=== PATIENT | male | born 1950 | race Caucasian/White ===

== ENCOUNTER 2020-01-23 16:57 | Inpatient (IN) | payer MEDICARE, OTHER ==
[~2020-01-23] VITALS: Ht 182.9 cm; Wt 117.8 kg
[2020-01-23 18:04] LABS: BASOPHILS % (AUTO) 0.4 % (0.0-5.0); EOSINOPHILS % (AUTO) 0.1 % (0.0-8.0); HEMATOCRIT 46.7 % (42-54); LYMPHOCYTES % (AUTO) 7.5 % (21.0-51.0); MEAN CORPUSCULAR HEMOGLOBIN 30.5 pg (27.0-33.0); MEAN CORPUSCULAR HGB CONC 33.4 g/dL (32.0-36.0); MEAN CORPUSCULAR VOLUME 91.2 fL (79-99); MONOCYTES % (AUTO) 5.2 % (3.0-13.0); NEUTROPHILS % (AUTO) 86.3 % (40.0-77.0); PLATELET COUNT (AUTO) 231 K/uL (130-400); RED BLOOD CELL COUNT(AUTO) 5.12 MIL/uL (4.50-6.20); RED CELL DISTRIBUTION WIDTH 12.6 % (11.0-15.5); WHITE BLOOD COUNT (AUTO) 15.1 K/uL (4.8-10.8)
[2020-01-23 18:07] LABS: APPEARANCE,URINE Cloudy (CLEAR); BILIRUBIN,URINE Small (NEGATIVE); COLOR,URINE Dark Yellow (YELLOW); GLUCOSE, URINE (UA) Negative (NEGATIVE); KETONES,URINE 40 mg/dL (NEGATIVE); LEUKOCYTE ESTERASE ,URINE Negative (NEGATIVE); NITRATE,URINE Negative (NEGATIVE); OCCULT BLOOD,URINE Large (NEGATIVE); PROTEIN,URINE POS 2+ mg/dL (NEGATIVE)
[2020-01-23 18:38] LABS: CREATININE 1.3 mg/dL (0.5-1.5); POTASSIUM 3.6 mmol/L (3.5-5.1)
[2020-01-23 18:44] LABS: ALBUMIN 4.3 g/dL (3.5-5.0); BILIRUBIN,TOTAL 0.9 mg/dL (0.2-1.0)
[2020-01-23] MEDS ORDERED: TAMSULOSIN HCL 0.4 MG CAP.ER.24H ONE (19:52)
[2020-01-23] MEDS ORDERED: CEFTRIAXONE SODIUM 1 GM ONE (19:52)
[2020-01-23] MEDS ORDERED: ONDANSETRON HCL 4 MG/2 ML VIAL IV PRN (20:15)
[2020-01-23] MEDS ORDERED: KETOROLAC TROMETHAMINE 15MG/ML IV PRN (20:15)
[2020-01-23] MEDS: SODIUM CHLORIDE 0.9% 1000ML 1,000 ML IV SCH (20:15)
[2020-01-23 20:39] LABS: RBC,URINE 26-50 /HPF (0-1)
[2020-01-23 20:40] LABS: BACTERIA,URINE Few /HPF (None Seen); MUCUS,URINE Moderate LPF (None Seen); SQUAMOUS EPITHELIAL CELL,UR Rare /HPF (0-2)
[2020-01-23] MEDS: FAMOTIDINE/PF 20 MG/2 ML VIAL IV SCH (21:00)
[2020-01-23] MEDS ORDERED: FAMOTIDINE/PF 20 MG/2 ML VIAL IV ONE (21:05)
[2020-01-23 22:10] VITALS: BP 161/99
[2020-01-24] VITALS (28 sets, daily range): BP systolic 116–167; BP diastolic 61–109
[2020-01-24 05:23] LABS: BASOPHILS % (AUTO) 0.7 % (0.0-5.0); EOSINOPHILS % (AUTO) 1.3 % (0.0-8.0); HEMATOCRIT 40.6 % (42-54); LYMPHOCYTES % (AUTO) 25.4 % (21.0-51.0); MEAN CORPUSCULAR HEMOGLOBIN 29.7 pg (27.0-33.0); MEAN CORPUSCULAR HGB CONC 32.8 g/dL (32.0-36.0); MEAN CORPUSCULAR VOLUME 90.6 fL (79-99); MONOCYTES % (AUTO) 9.4 % (3.0-13.0); NEUTROPHILS % (AUTO) 62.9 % (40.0-77.0); PLATELET COUNT (AUTO) 192 K/uL (130-400); RED BLOOD CELL COUNT(AUTO) 4.48 MIL/uL (4.50-6.20); RED CELL DISTRIBUTION WIDTH 12.7 % (11.0-15.5)
[2020-01-24 05:37] LABS: INR 0.99 (0.85-1.15); PARTIAL THROMBOPLASTIN TIME 26.1 SEC (26.3-35.5); PROTHROMBIN TIME 10.7 SEC (9.6-11.6)
[2020-01-24 05:43] LABS: ALANINE AMINOTRANSFERASE 16 U/L (12-78); ALBUMIN 3.4 g/dL (3.5-5.0); ASPARTATE AMINOTRANSFERASE 19 U/L (10-37); BILIRUBIN,TOTAL 0.8 mg/dL (0.2-1.0); CARBON DIOXIDE 25 mmol/L (21-32); CHLORIDE 105 mmol/L (101-111); GLOMERULAR FILTR. RATE CALC 78 mL/min (>60); GLUCOSE,RANDOM 102 mg/dL (70-105); POTASSIUM 3.5 mmol/L (3.5-5.1); SODIUM SERUM 140 mmol/L (136-145); TOTAL PROTEIN, SERUM 6.7 g/dL (6.0-8.3); UREA NITROGEN, BLOOD 16 mg/dL (7-18)
[2020-01-24] MEDS: CEFTRIAXONE SODIUM 1 GM IVP SCH ×2 (06:00→18:15)
--- NOTE | 2020-01-24 08:00 | NUR ---
PATIENT UPDATE Admitted a 69 yr old male for acute urethral lithiasis, seen by Dr. De La Paz in ER. Started on ivf of NS at 75 cc's per hour. Instructed on npo post mn, going for lt ureteroscopy with basketting this am, consent secured, patient showered. Urine strained overnight by pt himself, no stones drained. Went down for CT of the pelvis without contrast as per Dr. De La Paz's order at 0700. No complaints of pain overnight, no nausea and vomiting, slept well overnight.
[2020-01-24] MEDS ORDERED: LIDOCAINE PF 2% 5ML ABBOJECT ONE (08:32)
[2020-01-24] MEDS ORDERED: MIDAZOLAM HCL 1 MG/ML 2ML VIAL ONE (08:32)
[2020-01-24] MEDS ORDERED: ONDANSETRON HCL 4 MG/2 ML VIAL ONE (08:32)
[2020-01-24] MEDS ORDERED: SUCCINYLCHOLINE 200MG/10ML SYR ONE (08:32)
[2020-01-24] MEDS ORDERED: GLYCOPYRROLATE 1 MG/5 ML SYRINGE ONE (08:32)
[2020-01-24] MEDS ORDERED: NEOSTIGMINE 5MG/5ML SYR IV ONE (08:32)
[2020-01-24] MEDS ORDERED: DEXAMETHASONE SOD PHOSPHATE 10MG/ML 1ML VIAL ONE (08:32)
[2020-01-24] MEDS ORDERED: FENTANYL CITRATE PF 50 MCG/1 ML 2ML VIAL ONE ×2 (08:33→09:26)
[2020-01-24] MEDS ORDERED: ROCURONIUM 10MG/1ML SYR 10 MG/ML ML ONE (08:33)
[2020-01-24] MEDS ORDERED: PROPOFOL 10 MG/ML 20ML VIAL IV ONE (08:33)
[2020-01-24] MEDS ORDERED: IOHEXOL-350 50ML VIAL IV ONE (08:56)
[2020-01-24] MEDS ORDERED: TAMSULOSIN HCL 0.4 MG CAP.ER.24H PO SCH (09:00)
[2020-01-24] MEDS: SODIUM CHLORIDE 0.9% 1000ML 1,000 ML IV SCH (10:35)
[2020-01-24 12:01] LABS: HEMOGLOBIN A1C 5.8 % (4.0-6.0)
[2020-01-24 12:16] LABS: CHOLESTEROL 150 mg/dL (<200); HDL CHOLESTEROL 101 mg/dL (29-71); LDL DIRECT 78 mg/dL (0-99); TRIGLYCERIDES 112 mg/dL (30-200)
[2020-01-24] MEDS ORDERED: LACTATED RINGERS 1000ML 1,000 ML IV SCH (12:30)
[2020-01-24] MEDS ORDERED: ACETAMINOPHEN 325 MG TAB PO PRN (12:30)
[2020-01-24] MEDS ORDERED: ACETAMINOPHEN-CODEINE 300/30MG TAB PO PRN (12:30)
[2020-01-24] MEDS ORDERED: MEPERIDINE-PF 75 MG/ML SYG IM PRN (12:30)
[2020-01-24] MEDS ORDERED: OXYBUTYNIN CHLORIDE 5 MG TABLET PO PRN (12:30)
[2020-01-24] MEDS: FAMOTIDINE/PF 20 MG/2 ML VIAL IV SCH (13:33)
--- NOTE | 2020-01-24 15:29 | NUR ---
INITIAL SW met with patient and spouse, Mariama Acosta, [phone]. Patient has no home services or DME. He is able to complete ADL's independently and drives. 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 No PCP at this time. Pharmacy is [facility] located on [address] [place] [address] in [place]. DCP is home. Addendum: 01/24/20 at 1531 by MIRIAN LOCKWOOD SS Amended: Links added.
--- NOTE | 2020-01-24 18:12 | NUR ---
USING CLEAN TECHNIQUE, REMOVED STEIN CATHETER ORDERED BY DR SANCHEZ. NOTED 600MLS OF PINK TINGED URINE IN STEIN. DEFLATED 10CC OF NS FROM BULB. CATHETER TIP INTACT. PT DENIES DISCOMFORT. PENDING TO VOID. WILL CONTINUE TO MONITOR.
--- NOTE | 2020-01-24 18:56 | NUR ---
PT VOIDED. DR SANCHEZ AWARE, ROUNDED WITH PT AT THIS TIME. ORDERS GIVEN TO DISCHARGE PT HOME BY DR GALINDO AND DR SANCHEZ.
--- NOTE | 2020-01-24 19:50 | NUR ---
PER MD ORDERS DISCHARGE INSTRUCTIONS GIVEN TO PT. IV REMOVED, TIP INTACT. PT DENIES ANY PAIN. EDUCATE PT ON NEW MEDICATION KEFLEX AND TO FOLLOW UP WITH DR SANCHEZ IN 1 WEEK. VERBALIZES UNDERSTANDING.
== END 2020-01-24 19:55 | disposition home or self-care (01) | DRG 661 ==
LOC: EDH 16:57 → EDHIP 20:02 → 3DH 21:42
PROVIDERS: ADMIT Hospitalist; ATTEND Hospitalist
PROC: 0TC78ZZ Extirpation of Matter from Left Ureter, Via Natural or Artificial Opening Endoscopic (ICD-10-PCS; principal; 2020-01-24 09:10)
PROC: 0T748DZ Dilation of Left Kidney Pelvis with Intraluminal Device, Via Natural or Artificial Opening Endoscopic (ICD-10-PCS; 2020-01-24 09:10)
PROC: BT1F1ZZ Fluoroscopy of Left Kidney, Ureter and Bladder using Low Osmolar Contrast (ICD-10-PCS; 2020-01-24 09:10)
DX: N13.2 Hydronephrosis with renal and ureteral calculous obstruction (principal); K57.90 Diverticulosis of intestine, part unspecified, without perforation or abscess without bleeding; K76.89 Other specified diseases of liver; N28.89 Other specified disorders of kidney and ureter; Z87.891 Personal history of nicotine dependence; Z85.828 Personal history of other malignant neoplasm of skin; Z72.89 Other problems related to lifestyle
CPT/HCPCS: 36415; 71045; 72192; 74176; 74420; 80053; 80061; 81001; 82360; 83036; 84145; 84153; 85025; 85610; 85730; 87088; 93005; A4344; C1758; C1769; C2617; G0378; J0330; J0696; J1100; J2001; J2250; J2405; J2704; J2710; J3010; J3490; J7120; Q9967

== ENCOUNTER → 2021-03-16 | Outpatient (CLI) | payer OTHER, MEDICARE ==
[~2021-03-16] MED LIST: IOHEXOL 350 MG/ML 100ML INFUS..BTL IV ONE
[2021-03-16 11:50] LABS: INR 1.05 (0.85-1.15); PROTHROMBIN TIME 11.4 SEC (9.6-11.6)
[2021-03-16 11:52] LABS: PARTIAL THROMBOPLASTIN TIME 24.9 SEC (26.3-35.5)
== END | disposition home or self-care (01) ==
LOC: RAH 09:09 → EEVIPCON 10:10
PROVIDERS: ATTEND Otolaryngology Plastic Surgery within the Head & Neck
DX: R22.1 Localized swelling, mass and lump, neck (principal); K11.8 Other diseases of salivary glands; Z79.01 Long term (current) use of anticoagulants; Z90.89 Acquired absence of other organs
CPT/HCPCS: 36415; 42400; 70491; 71260; 76942; 85610; 85730; 87070; 87076; 87101; 87206; Q9967; 10005; 38505

== ENCOUNTER 2021-04-11 06:30 | Day surgery (SDC) | payer OTHER, MEDICARE ==
[2021-04-06 12:19] LABS: BASOPHILS % (AUTO) 0.2 % (0.0-5.0); EOSINOPHILS % (AUTO) 0.3 % (0.0-8.0); HEMATOCRIT 41.1 % (42-54); LYMPHOCYTES % (AUTO) 18.2 % (21.0-51.0); MEAN CORPUSCULAR HEMOGLOBIN 29.8 pg (27.0-33.0); MEAN CORPUSCULAR HGB CONC 32.6 g/dL (32.0-36.0); MEAN CORPUSCULAR VOLUME 91.3 fL (79-99); MONOCYTES % (AUTO) 8.7 % (3.0-13.0); NEUTROPHILS % (AUTO) 72.3 % (40.0-77.0); PLATELET COUNT (AUTO) 193 K/uL (130-400); RED CELL DISTRIBUTION WIDTH 12.7 % (11.0-15.5); WHITE BLOOD COUNT (AUTO) 13.3 K/uL (4.8-10.8)
[2021-04-06 12:31] LABS: CREATININE 0.9 mg/dL (0.5-1.5)
[2021-04-07 10:11] VITALS: BP 155/68
[2021-04-11] VITALS (20 sets, daily range): BP systolic 137–159; BP diastolic 61–78
[~2021-04-11] VITALS: Ht 182.9 cm; Wt 114.1 kg
[~2021-04-11 06:30] MED LIST changes: +ACET325C6 PO; +AMOX-429 PO; -IOHEXOL 350 MG/ML 100ML INFUS..BTL IV ONE
[2021-04-11] MEDS ORDERED: LIDOCAINE 1%-EPI 1:100,000 20 ML VIAL IJ ONE (06:49)
[2021-04-11] MEDS ORDERED: LACTATED RINGERS 1000ML 1,000 ML IV ONE (06:50)
[2021-04-11] MEDS ORDERED: MIDAZOLAM HCL 1 MG/ML 2ML VIAL ONE (07:13)
[2021-04-11] MEDS ORDERED: LIDOCAINE PF 100MG/5ML (2%) SYRINGE 5ML ONE (07:13)
[2021-04-11] MEDS ORDERED: PROPOFOL 10 MG/ML 20ML VIAL IV ONE ×2 (07:14→07:56)
[2021-04-11] MEDS ORDERED: FENTANYL CITRATE PF 50 MCG/1 ML 2ML VIAL ONE (07:14)
[2021-04-11] MEDS ORDERED: ONDANSETRON 4MG INJ ONE (07:14)
[2021-04-11] MEDS ORDERED: ROCURONIUM 10MG/1ML SYR 10 MG/ML ML ONE (07:14)
[2021-04-11] MEDS ORDERED: ESMOLOL HCL 10 MG/ML 10 ML VIAL ONE (07:31)
[2021-04-11] MEDS ORDERED: CEFAZOLIN SODIUM 1 GM VIAL ONE ×2 (07:34→08:56)
[2021-04-11] MEDS ORDERED: PHENYLEPHRINE HCL 10 MG/ML 1ML VIAL IV ONE (08:19)
[2021-04-11] MEDS ORDERED: EPINEPHRINE 1 MG/ML 30ML VIAL IJ ONE (08:31)
[2021-04-11] MEDS ORDERED: MEPERIDINE-PF 25 MG/ML SYG ONE (08:41)
[2021-04-11] MEDS ORDERED: GLYCOPYRROLATE 1 MG/5 ML SYRINGE ONE (09:04)
[2021-04-11] MEDS ORDERED: NEOSTIGMINE 5MG/5ML SYR IV ONE (09:05)
== END 2021-04-11 11:50 | disposition home or self-care (01) ==
LOC: DAH 06:30
PROVIDERS: ATTEND Otolaryngology Plastic Surgery within the Head & Neck
DX: C01 Malignant neoplasm of base of tongue (principal); C76.0 Malignant neoplasm of head, face and neck; Z20.822 Contact with and (suspected) exposure to COVID-19; K21.9 Gastro-esophageal reflux disease without esophagitis; Z79.899 Other long term (current) drug therapy; R59.0 Localized enlarged lymph nodes
CPT/HCPCS: 20205; 36415; 41105; 80048; 85025; 87070 ×2; 87076 ×2; 87101 ×2; 87116 ×2; 87206 ×4; 87426; 93005; A4215; A4221; A4222; A4223; A4663; C1713; C1729; J0171; J0690 ×2; J2001; J2175; J2250; J2370; J2405; J2704 ×2; J2710; J3010; J3490 ×3; J7120